=== PATIENT | female | born 1940 | race Caucasian/White ===

== ENCOUNTER → 2016-07-02 | Outpatient (CLI) | payer MEDICARE, OTHER ==
[2016-07-02 13:12] LABS: BUN/Creatinine Ratio 20.7; Calcium 9.6 mg/dL (8.5-10.1)
== END | disposition home or self-care (01) ==
LOC: LAB 08:50
PROVIDERS: ATTEND Internal Medicine Cardiovascular Disease
DX: I10 Essential (primary) hypertension (principal); E11.9 Type 2 diabetes mellitus without complications
CPT/HCPCS: 36415; 80048; 83036

== ENCOUNTER → 2017-05-23 | Outpatient (CLI) | payer MEDICARE | END | disposition home or self-care (01) | LOC: US 10:00 | PROVIDERS: ATTEND Internal Medicine Cardiovascular Disease | DX: N63.20 Unspecified lump in the left breast, unspecified quadrant (principal) | CPT/HCPCS: 10022; 76642; 76942; 88341; 88360; 88361 ==

== ENCOUNTER → 2017-06-24 | Outpatient (CLI) | payer MEDICARE ==
[2017-06-24 12:11] LABS: Urine Blood Negative /uL (Negative); Urine Specific Gravity 1.026 (1.001-1.035)
[2017-06-24 12:17] LABS: Basophils # (auto) 0 uL; Basophils % (auto) 0.5 % (0.0-2.0); Eosinophils # (auto) 0.2 uL; Eosinophils % (auto) 1.9 % (0.0-7.0); Hematocrit 44.8 % (36.0-46.0); Hemoglobin 14.9 g/dL (12.2-16.2); Lymphocytes # (auto) 3.1 uL; Lymphocytes % (auto) 33.6 % (10.0-50.0); Mean Corpuscular Hemoglobin 30.7 pg (28.0-32.0); Mean Corpuscular Hgb Conc. 33.3 g/dL (32.0-36.0); Mean Corpuscular Volume 92.2 fL (80.0-100.0); Monocytes # (auto) 0.8 uL; Monocytes % (auto) 8.8 % (0.0-12.0); Neutrophils # (auto) 5.2 uL; Neutrophils % (auto) 55.2 % (37.0-80.0); Nucleated Red Blood Cells % 0.5 %; Platelet Count (auto) 252 10^3/uL (140-450); Red Blood Cells 4.86 10^6/uL (4.0-5.20); Red Cell Distribution Width 12.9 % (11.8-14.3); White Blood Cell 9.4 10^3/uL (4.4-10.8)
[2017-06-24 12:25] LABS: Free T4 (Free Thyroxine) 1.36 ng/dL (0.89-1.76)
[2017-06-24 12:55] LABS: Albumin 3.7 g/dL (3.4-5.0); BUN/Creatinine Ratio 28.2; Bilirubin, Direct 0.2 mg/dL (0-0.2); Bilirubin, Total 0.6 mg/dL (0.2-1.0); Potassium 3.9 mmol/L (3.5-5.1); Total Protein 7.4 g/dL (6.4-8.2)
== END | disposition home or self-care (01) ==
LOC: LAB 08:02
PROVIDERS: ATTEND Internal Medicine Cardiovascular Disease
DX: E78.00 Pure hypercholesterolemia, unspecified (principal); D64.9 Anemia, unspecified; I10 Essential (primary) hypertension; E11.9 Type 2 diabetes mellitus without complications; E55.9 Vitamin D deficiency, unspecified; E03.9 Hypothyroidism, unspecified; K74.1 Hepatic sclerosis; D51.9 Vitamin B12 deficiency anemia, unspecified; N39.0 Urinary tract infection, site not specified
CPT/HCPCS: 36415; 80048; 80061; 80076; 81003; 82306; 82607; 83036; 84439; 84443; 85025

== ENCOUNTER → 2018-03-19 | Outpatient (CLI) | payer MEDICARE | END | disposition home or self-care (01) | LOC: Rad HDHVI 08:00 | PROVIDERS: ATTEND Internal Medicine Cardiovascular Disease | DX: I35.0 Nonrheumatic aortic (valve) stenosis (principal); I10 Essential (primary) hypertension | CPT/HCPCS: 93306 ==

== ENCOUNTER → 2018-04-09 | Outpatient (CLI) | payer MEDICARE ==
[2018-04-09 12:40] VITALS: BP 163/92
--- NOTE | 2018-04-09 12:40 | NUR ---
Scheduled Lashawn Cath Flush 20 gauge Thapa needle inserted by Noeim BOOTHE using sterile technique in the R upper chest. Lashawn Cath flushed with 20 mL's of 0.9% NS followed by 500 units per 5mL's Heparin. Thapa Needle D/C'd with sterile occlusive dressing to site. Patient tolerated procedure well. See e-MAR for medications given during this visit.
[2018-04-09 13:00] VITALS: BP 143/77
--- NOTE | 2018-04-09 13:00 | NUR ---
[facility] Discharge Instructions See e-MAR for any mediations given with this visit. Patient education given on disease process. Patient verbalized understanding. Previous labs reviewed. Patient discharged in stable condition with after care instructions and follow up appointment. NOTE HEPARIN ADMIN BY HALIMA BOOTHE
== END | disposition home or self-care (01) ==
LOC: CHF HDHVI 12:44
PROVIDERS: ATTEND Internal Medicine Cardiovascular Disease
DX: Z45.2 Encounter for adjustment and management of vascular access device (principal); I10 Essential (primary) hypertension; E11.9 Type 2 diabetes mellitus without complications; E78.00 Pure hypercholesterolemia, unspecified; E03.9 Hypothyroidism, unspecified
CPT/HCPCS: G0463; J1642; 96374; 96523

== ENCOUNTER → 2018-05-15 | Outpatient (CLI) | payer MEDICARE ==
[2018-05-15 09:15] VITALS: BP 139/65
--- NOTE | 2018-05-15 09:15 | NUR ---
[facility]F PT TO [facility] CLINIC FOR MD LOPEZ ORDERED PORT FLUSH
--- NOTE | 2018-05-15 09:40 | NUR ---
CHF Lashawn Cath Insertion 20 gauge Lashawn Cath inserted using sterile technique in the upper chest with occlusive dressing over jansen needle. Patient tolerated procedure well. Ordered labs drawn and sent. See e-MAR for medications given during this visit.
[2018-05-15 09:45] VITALS: BP 147/60
--- NOTE | 2018-05-15 09:48 | NUR ---
CHF Lashawn Cath Removal Thapa needle D/C'd after Heparin flush per protocol. See e-MAR for medications given during this visit. Sterile occlusive dressing to site. Patient tolerated procedure well. Site benign post infusion. Discharge Instructions See e-MAR for any mediations given with this visit. Patient education given on disease process. Patient verbalized understanding. Previous labs reviewed. Patient discharged in stable condition with after care instructions and follow up appointment.
== END | disposition home or self-care (01) ==
LOC: CHF HDHVI 09:07
PROVIDERS: ATTEND Internal Medicine Cardiovascular Disease
DX: I10 Essential (primary) hypertension (principal); D51.9 Vitamin B12 deficiency anemia, unspecified; E78.00 Pure hypercholesterolemia, unspecified
CPT/HCPCS: G0463; J1642

== ENCOUNTER → 2018-06-09 | Outpatient (CLI) | payer MEDICARE ==
[2018-06-09 09:05] VITALS: BP 152/71
--- NOTE | 2018-06-09 09:05 | NUR ---
[facility]F PT TO [facility] CLINIC FOR PORT ACCESS FOR LAB DRAW OF ALL LABS.
--- NOTE | 2018-06-09 09:20 | NUR ---
CHF Lashawn Cath Insertion 20 gauge Lashawn Cath inserted using sterile technique in the upper chest with occlusive dressing over jansen needle. Patient tolerated procedure well. Ordered labs drawn and sent. See e-MAR for medications given during this visit. Lashawn Cath Removal Jansen needle D/C'd after Heparin flush per protocol. See e-MAR for medications given during this visit. Sterile occlusive dressing to site. Patient tolerated procedure well. Site benign post infusion.
[2018-06-09 09:35] VITALS: BP 157/65
--- NOTE | 2018-06-09 09:35 | NUR ---
CHF Discharge Instructions See e-MAR for any mediations given with this visit. Patient education given on disease process. Patient verbalized understanding. Previous labs reviewed. Patient discharged in stable condition with after care instructions and follow up appointment. FOLLOW UP WITH DR. LOPEZ SCHEDULED.
[2018-06-09 12:09] LABS: Urine Blood Negative /uL (Negative); Urine Specific Gravity 1.024 (1.001-1.035)
[2018-06-09 12:12] LABS: Potassium 3.8 mmol/L (3.5-5.1)
[2018-06-09 12:19] LABS: Basophils # (auto) 0 uL; Basophils % (auto) 0.6 % (0.0-2.0); Eosinophils # (auto) 0.1 uL; Eosinophils % (auto) 2.3 % (0.0-7.0); Hematocrit 40.9 % (36.0-46.0); Hemoglobin 14.1 g/dL (12.2-16.2); Lymphocytes # (auto) 1.5 uL; Lymphocytes % (auto) 26.9 % (10.0-50.0); Mean Corpuscular Hemoglobin 31.3 pg (28.0-32.0); Mean Corpuscular Hgb Conc. 34.4 g/dL (32.0-36.0); Mean Corpuscular Volume 90.8 fL (80.0-100.0); Monocytes # (auto) 0.6 uL; Monocytes % (auto) 10.7 % (0.0-12.0); Neutrophils # (auto) 3.2 uL; Neutrophils % (auto) 59.5 % (37.0-80.0); Nucleated Red Blood Cells % 0.2 %; Platelet Count (auto) 203 10^3/uL (140-450); Red Blood Cells 4.51 10^6/uL (4.0-5.20); Red Cell Distribution Width 13.7 % (11.8-14.3); White Blood Cell 5.4 10^3/uL (4.4-10.8)
[2018-06-09 12:21] LABS: Free T4 (Free Thyroxine) 1.25 ng/dL (0.89-1.76)
[2018-06-09 12:24] LABS: Albumin 3.4 g/dL (3.4-5.0); BUN/Creatinine Ratio 26.3; Bilirubin, Total 0.7 mg/dL (0.2-1.0); Total Protein 6.6 g/dL (6.4-8.2)
== END | disposition home or self-care (01) ==
LOC: LAB 08:54
PROVIDERS: ATTEND Internal Medicine Cardiovascular Disease
DX: E11.9 Type 2 diabetes mellitus without complications (principal); I10 Essential (primary) hypertension; E03.9 Hypothyroidism, unspecified; E55.9 Vitamin D deficiency, unspecified; D51.9 Vitamin B12 deficiency anemia, unspecified; N39.0 Urinary tract infection, site not specified; G93.89 Other specified disorders of brain; Z85.3 Personal history of malignant neoplasm of breast
CPT/HCPCS: 36415; 80053; 80061; 81003; 82306; 82607; 83036; 84439; 84443; 85025; 87086; G0463; J1642; 96523

== ENCOUNTER → 2018-06-23 | Outpatient (CLI) | payer MEDICARE | END | disposition home or self-care (01) | LOC: Rad HDHVI 11:05 | PROVIDERS: ATTEND Internal Medicine Cardiovascular Disease | DX: G93.89 Other specified disorders of brain (principal); R27.0 Ataxia, unspecified | CPT/HCPCS: 70450 ==

== ENCOUNTER → 2018-07-10 | Outpatient (CLI) | payer MEDICARE ==
[~2018-07-10] VITALS: Ht 160 cm; Wt 81.6 kg
[~2018-07-10] MED LIST: ADENOSINE 69 MG in GIVE UN-DILUTED 0 ML IV ONE; ADENOSINE 90 MG/30 ML INJ IV ONE
[2018-07-10 13:45] VITALS: BP 136/65
--- NOTE | 2018-07-10 13:45 | NUR ---
Lashawn Cath Insertion 20 gauge non coring Lashawn Cath inserted using sterile technique in the upper chest with occlusive dressing over jansen needle. Patient tolerated procedure well. Ordered labs drawn and sent. See e-MAR for medications given during this visit.
--- NOTE | 2018-07-10 13:50 | NUR ---
[facility]F PT ARRIVED AT [facility] CLINIC FOR FRACISCO CATH ACCESS, ONE SET OF VITALS DONE AND PATIENT SENT TO [facility] FOR PROCEDURE AND DISCHARGE FROM THERE
--- NOTE | 2018-07-10 15:00 | NUR ---
Lashawn Cath Removal Thapa needle D/C'd after Heparin flush per protocol. See e-MAR for medications given during this visit. Sterile occlusive dressing to site. Patient tolerated procedure well. Site benign post infusion.
== END | disposition home or self-care (01) ==
LOC: Rad HDHVI 13:23
PROVIDERS: ATTEND Internal Medicine Cardiovascular Disease
DX: C50.919 Malignant neoplasm of unspecified site of unspecified female breast (principal); R42 Dizziness and giddiness
CPT/HCPCS: 78452; 93005; 96374; 96375; 96523; A9500; G0463; J0153; J1642

== ENCOUNTER → 2018-08-07 | Outpatient (CLI) | payer MEDICARE ==
[~2018-08-07] VITALS: Ht 30.5 cm; Wt 0.5 kg
[2018-08-07 08:50] VITALS: BP 134/58
--- NOTE | 2018-08-07 08:50 | NUR ---
PT. HERE FOR MONTHLY FRACISCO CATH FLUSH PER MD ORDER. PT. WITH NO C/O. ORDERS RECEIVED AND CARRIED OUT.
--- NOTE | 2018-08-07 09:00 | NUR ---
Lashawn Cath Insertion 20 gauge Lashawn Cath inserted using sterile technique in the upper chest with occlusive dressing over jansen needle. Patient tolerated procedure well. See e-MAR for medications given during this visit.
[2018-08-07 09:20] VITALS: BP 130/62
--- NOTE | 2018-08-07 09:20 | NUR ---
Discharge Instructions See e-MAR for any mediations given with this visit. Patient education given on disease process. Patient verbalized understanding. Previous labs reviewed. Patient discharged in stable condition with after care instructions and follow up appointment.
== END | disposition home or self-care (01) ==
LOC: CHF HDHVI 08:39
PROVIDERS: ATTEND Internal Medicine Cardiovascular Disease
DX: Z45.2 Encounter for adjustment and management of vascular access device (principal); C50.919 Malignant neoplasm of unspecified site of unspecified female breast
CPT/HCPCS: G0463; J1642; 96374

== ENCOUNTER → 2018-09-04 | Outpatient (CLI) | payer MEDICARE ==
[2018-09-04 09:00] VITALS: BP 153/57
--- NOTE | 2018-09-04 09:00 | NUR ---
Discharge Instructions See e-MAR for any mediations given with this visit. Patient education given on disease process. Patient verbalized understanding. Previous labs reviewed. Patient discharged in stable condition with after care instructions and follow up appointment. MEDICATION 0900 HEPARIN 500 UNITS IVP X 1
[2018-09-04 09:20] VITALS: BP 140/68
--- NOTE | 2018-09-04 09:20 | NUR ---
RIGHT CHEST POWER PORT ACCESSED FOR MONTHLY MAINTENANCE. Scheduled Lashawn Cath Flush 20 gauge Thapa needle inserted using sterile technique in the upper chest. Lashawn Cath flushed with 20 mL's of 0.9% NS followed by 500 units per 5mL's Heparin. Thapa Needle D/C'd with sterile occlusive dressing to site. Patient tolerated procedure well.
== END | disposition home or self-care (01) ==
LOC: CHF HDHVI 08:59
PROVIDERS: ATTEND Internal Medicine Cardiovascular Disease
DX: Z45.2 Encounter for adjustment and management of vascular access device (principal); Z85.3 Personal history of malignant neoplasm of breast
CPT/HCPCS: G0463; J1642; 96523

== ENCOUNTER → 2018-11-27 | Outpatient (CLI) | payer MEDICARE ==
[~2018-11-27] VITALS: Ht 30.5 cm; Wt 0.5 kg
[2018-11-27 09:00] VITALS: BP 132/52
[2018-11-27 09:20] VITALS: BP 130/55
--- NOTE | 2018-11-27 09:20 | NUR ---
IN TO CLINIC FOR RIGHT CHEST POWER PORT FLUSH. AWAKE AND ALERT WITHOUT DISTRESS. Scheduled Lashawn Cath Flush 20 gauge Thapa needle inserted using sterile technique in the upper chest. Lashawn Cath flushed with 20 mL's of 0.9% NS followed by 500 units per 5mL's Heparin. Thapa Needle D/C'd with sterile occlusive dressing to site. Patient tolerated procedure well. See e-MAR for medications given during this visit.
== END | disposition home or self-care (01) ==
LOC: CHF HDHVI 09:00
PROVIDERS: ATTEND Internal Medicine Cardiovascular Disease
DX: Z45.2 Encounter for adjustment and management of vascular access device (principal); I10 Essential (primary) hypertension; E03.9 Hypothyroidism, unspecified; E11.9 Type 2 diabetes mellitus without complications; Z85.3 Personal history of malignant neoplasm of breast
CPT/HCPCS: G0463; J1642; 96523

== ENCOUNTER → 2019-01-07 | Outpatient (CLI) | payer MEDICARE ==
[2019-01-07 09:05] VITALS: BP 127/59
--- NOTE | 2019-01-07 09:05 | NUR ---
CHF PT ARRIVED AT THE [facility]F CLINIC FOR FRACISCO CATH CARE. PT IS A/O X 3 VSS
[2019-01-07 09:37] VITALS: BP 130/60
--- NOTE | 2019-01-07 09:37 | NUR ---
Discharge Instructions See e-MAR for any mediations given with this visit. Patient education given on disease process. Patient verbalized understanding. Previous labs reviewed. Patient discharged in stable condition with after care instructions and follow up appointment. MEDS HEPARIN 500 UNITS IVP X 1
== END | disposition home or self-care (01) ==
LOC: CHF HDHVI 09:08
PROVIDERS: ATTEND Internal Medicine Cardiovascular Disease
DX: Z45.2 Encounter for adjustment and management of vascular access device (principal); I10 Essential (primary) hypertension; E03.9 Hypothyroidism, unspecified; E11.9 Type 2 diabetes mellitus without complications; Z85.3 Personal history of malignant neoplasm of breast
CPT/HCPCS: G0463; J1642

== ENCOUNTER → 2019-02-05 | Outpatient (CLI) | payer MEDICARE ==
[~2019-02-05] MED LIST changes: -ADENOSINE 69 MG in GIVE UN-DILUTED 0 ML IV ONE; -ADENOSINE 90 MG/30 ML INJ IV ONE; +CYANOCOBALAMIN (B-12) 1000 MCG/1 ML VIAL IM ONE; +CYANOCOBALAMIN (B-12) 1000 MCG/1 ML VIAL ONE
[2019-02-05 09:00] VITALS: BP 151/64
--- NOTE | 2019-02-05 09:34 | NUR ---
IN TO CLINIC FOR RIGHT CHEST PORT MAINTENANCE. Lashawn Cath Insertion 20 gauge Lashawn Cath inserted using sterile technique in the upper chest with occlusive dressing over jansen needle. Patient tolerated procedure well. Ordered labs drawn and sent. See e-MAR for medications given during this visit.
[2019-02-05 09:35] VITALS: BP 146/65
== END | disposition home or self-care (01) ==
LOC: CHF HDHVI 09:01
PROVIDERS: ATTEND Internal Medicine Cardiovascular Disease
DX: Z45.2 Encounter for adjustment and management of vascular access device (principal); E03.9 Hypothyroidism, unspecified; I10 Essential (primary) hypertension; E11.9 Type 2 diabetes mellitus without complications; Z85.3 Personal history of malignant neoplasm of breast
CPT/HCPCS: 96372; G0463; J1642; J3420; 96523

== ENCOUNTER → 2019-04-23 | Outpatient (CLI) | payer MEDICARE ==
[2019-04-23 09:15] VITALS: BP 146/69
--- NOTE | 2019-04-23 09:15 | NUR ---
Discharge Instructions See e-MAR for any mediations given with this visit. Patient education given on disease process. Patient verbalized understanding. Previous labs reviewed. Patient discharged in stable condition with after care instructions and follow up appointment. MEDICATIONS VITAMIN B12 1000 MCG IM X 1 RIGHT DELTOID LOT # [id number] EXP 11/30 HEPARIN IVP
--- NOTE | 2019-04-23 09:39 | NUR ---
Scheduled Lashawn Cath Flush 20 gauge Thapa needle inserted using sterile technique in the upper chest. Lashawn Cath flushed with 20 mL's of 0.9% NS followed by 500 units per 5mL's Heparin. Thapa Needle D/C'd with sterile occlusive dressing to site. Patient tolerated procedure well. See e-MAR for medications given during this visit.
[2019-04-23 09:58] VITALS: BP 156/66
[2019-04-23 11:54] LABS: Basophils # (auto) 0 uL; Basophils % (auto) 0.6 % (0.0-2.0); Eosinophils # (auto) 0.2 uL; Eosinophils % (auto) 2.5 % (0.0-7.0); Hematocrit 42.6 % (36.0-46.0); Hemoglobin 14.3 g/dL (12.2-16.2); Lymphocytes # (auto) 2.6 uL; Lymphocytes % (auto) 38.3 % (10.0-50.0); Mean Corpuscular Hemoglobin 30.8 pg (28.0-32.0); Mean Corpuscular Hgb Conc. 33.5 g/dL (32.0-36.0); Mean Corpuscular Volume 91.8 fL (80.0-100.0); Monocytes # (auto) 0.6 uL; Monocytes % (auto) 8.6 % (0.0-12.0); Neutrophils # (auto) 3.4 uL; Platelet Count (auto) 202 10^3/uL (140-450); Red Blood Cells 4.64 10^6/uL (4.0-5.20); Red Cell Distribution Width 13.4 % (11.8-14.3); White Blood Cell 6.8 10^3/uL (4.4-10.8)
[2019-04-23 12:00] LABS: Urine Blood Negative /uL (Negative); Urine Specific Gravity 1.024 (1.001-1.035)
[2019-04-23 12:02] LABS: Albumin 3.6 g/dL (3.4-5.0)
[2019-04-23 12:11] LABS: Bilirubin, Total 0.6 mg/dL (0.2-1.0); Calcium 9.4 mg/dL (8.5-10.1); Total Protein 6.9 g/dL (6.4-8.2)
[2019-04-23 15:26] LABS: Free T4 (Free Thyroxine) 1.36 ng/dL (0.89-1.76)
== END | disposition home or self-care (01) ==
LOC: CHF HDHVI 09:05
PROVIDERS: ATTEND Internal Medicine Cardiovascular Disease
DX: Z00.00 Encounter for general adult medical examination without abnormal findings (principal); C50.919 Malignant neoplasm of unspecified site of unspecified female breast; E03.9 Hypothyroidism, unspecified; K90.9 Intestinal malabsorption, unspecified; N39.0 Urinary tract infection, site not specified; D51.9 Vitamin B12 deficiency anemia, unspecified; Z79.899 Other long term (current) drug therapy; R53.83 Other fatigue
CPT/HCPCS: 36415; 80053; 80061; 81003; 82306; 82607; 83036; 84439; 84443; 85025; 87086; 96372; G0463; J1642; J3420

== ENCOUNTER → 2019-06-04 | Outpatient (CLI) | payer MEDICARE ==
[~2019-06-04] VITALS: Ht 30.5 cm; Wt 0.5 kg
[2019-06-04 08:10] VITALS: BP 123/54
--- NOTE | 2019-06-04 08:10 | NUR ---
Discharge Instructions See e-MAR for any mediations given with this visit. Patient education given on disease process. Patient verbalized understanding. Previous labs reviewed. Patient discharged in stable condition with after care instructions and follow up appointment. PT AT CLINIC FOR MONTHLY PORT FLUSH. A/O X 4 0 DISTRESS VSS MEDICATIONS HEPARIN IVP
[2019-06-04 08:40] VITALS: BP 141/65
[2019-06-04 16:05] LABS: Urine Blood Negative /uL (Negative); Urine Specific Gravity 1.022 (1.001-1.035)
== END | disposition home or self-care (01) ==
LOC: CHF HDHVI 08:03
PROVIDERS: ATTEND Internal Medicine Cardiovascular Disease
DX: N39.0 Urinary tract infection, site not specified (principal)
CPT/HCPCS: 81003; 87086; G0463; J1642

== ENCOUNTER → 2020-01-27 | Outpatient (CLI) | payer MEDICARE ==
[2020-01-27 12:08] LABS: Basophils # (auto) 0 10 ^3/uL (0-0.2); Basophils % (auto) 0.5 % (0.0-2.0); Eosinophils # (auto) 0.1 10 ^3/uL (0-0.8); Eosinophils % (auto) 1.6 % (0.0-7.0); Hemoglobin 14.7 g/dL (12.2-16.2); Lymphocytes # (auto) 2.5 10 ^3/uL (0.4-5.4); Mean Corpuscular Hemoglobin 29.7 pg (28.0-32.0); Mean Corpuscular Hgb Conc. 31.9 g/dL (32.0-36.0); Monocytes # (auto) 0.7 10 ^3/uL (0-1.3); Monocytes % (auto) 8.4 % (0.0-12.0); Neutrophils # (auto) 4.5 10 ^3/uL (1.6-8.6); Neutrophils % (auto) 57.5 % (37.0-80.0); Nucleated Red Blood Cells % 0.1 %; Platelet Count (auto) 221 10^3/uL (140-450); Red Blood Cells 4.95 10^6/uL (4.0-5.20); Red Cell Distribution Width 13.5 % (11.8-14.3); White Blood Cell 7.9 10^3/uL (4.4-10.8)
[2020-01-27 12:12] LABS: Urine Blood Negative /uL (Negative); Urine Specific Gravity 1.017 (1.001-1.035)
[2020-01-27 12:24] LABS: Chloride 103 mmol/L (98-107); Potassium 4.2 mmol/L (3.5-5.1); Sodium 137 mmol/L (136-145)
[2020-01-27 12:28] LABS: Free T4 (Free Thyroxine) 1.35 ng/dL (0.89-1.76)
[2020-01-27 12:33] LABS: Alanine Aminotransferase 26 U/L (13-56); Albumin 3.4 g/dL (3.4-5.0); Alkaline Phosphatase 78 U/L (45-117); Anion Gap 7 (5-15); Aspartate Aminotransferase 17 U/L (15-37); BUN/Creatinine Ratio 24.2; Bilirubin, Total 0.6 mg/dL (0.2-1.0); Blood Urea Nitrogen 22 mg/dL (7-18); Calcium 9.6 mg/dL (8.5-10.1); Carbon Dioxide 27 mmol/L (21-32); Cholesterol 205 mg/dL (< 200); GFR African American 77 mL/min; GFR Non-African American 63 mL/min; Glucose 110 mg/dL (74-106); HDL Cholesterol < 3 mg/dL (40-59); LDL Cholesterol 122 mg/dL (< 100); Total Protein 7.1 g/dL (6.4-8.2); Triglycerides 190 mg/dL (< 150)
== END | disposition home or self-care (01) ==
LOC: LAB 09:07
PROVIDERS: ATTEND Internal Medicine Cardiovascular Disease
DX: D51.3 Other dietary vitamin B12 deficiency anemia (principal); D64.9 Anemia, unspecified; E11.9 Type 2 diabetes mellitus without complications; E55.9 Vitamin D deficiency, unspecified; I10 Essential (primary) hypertension; R00.2 Palpitations; R53.1 Weakness; R30.0 Dysuria
CPT/HCPCS: 36415; 80053; 80061; 81003; 82306; 82607; 83036; 84439; 84443; 85025

== ENCOUNTER → 2021-03-27 | Outpatient (CLI) | payer MEDICARE | END | disposition home or self-care (01) | LOC: Rad HDHVI 10:55 | PROVIDERS: ATTEND Internal Medicine Cardiovascular Disease | DX: R07.89 Other chest pain (principal); R06.02 Shortness of breath | CPT/HCPCS: 93306 ==

== ENCOUNTER → 2021-03-29 | Outpatient (CLI) | payer MEDICARE ==
[~2021-03-29] VITALS: Ht 160 cm; Wt 86.2 kg
[~2021-03-29] MED LIST changes: +ADENOSINE 72 MG in GIVE UN-DILUTED 0 ML IV ONE; +ADENOSINE 90 MG/30 ML INJ IV ONE; -CYANOCOBALAMIN (B-12) 1000 MCG/1 ML VIAL IM ONE; -CYANOCOBALAMIN (B-12) 1000 MCG/1 ML VIAL ONE
== END | disposition home or self-care (01) ==
LOC: Rad HDHVI 08:01
PROVIDERS: ATTEND Internal Medicine Cardiovascular Disease
DX: I10 Essential (primary) hypertension (principal); E11.9 Type 2 diabetes mellitus without complications; E78.5 Hyperlipidemia, unspecified; Z82.49 Family history of ischemic heart disease and other diseases of the circulatory system
CPT/HCPCS: 78452; 93005; 96374; 96375; A9500; J0153

== ENCOUNTER → 2021-04-24 | Outpatient (CLI) | payer MEDICARE | END | disposition home or self-care (01) | LOC: LAB 14:53 | PROVIDERS: ATTEND Internal Medicine Cardiovascular Disease | DX: R94.4 Abnormal results of kidney function studies (principal) | CPT/HCPCS: 36415; 82565; 84520 ==

== ENCOUNTER → 2021-04-26 | Outpatient (CLI) | payer MEDICARE ==
[~2021-04-26] MED LIST changes: -ADENOSINE 72 MG in GIVE UN-DILUTED 0 ML IV ONE; -ADENOSINE 90 MG/30 ML INJ IV ONE; +IOHEXOL 350 MG/ML 100ML IJ ONE
[2021-04-26 09:56] VITALS: BP 165/72
[2021-04-26 10:34] VITALS: BP 152/59
== END | disposition home or self-care (01) ==
LOC: Rad HDHVI 09:49
PROVIDERS: ATTEND Internal Medicine Cardiovascular Disease
DX: R91.8 Other nonspecific abnormal finding of lung field (principal); I25.10 Atherosclerotic heart disease of native coronary artery without angina pectoris; K76.0 Fatty (change of) liver, not elsewhere classified; R59.0 Localized enlarged lymph nodes; C50.919 Malignant neoplasm of unspecified site of unspecified female breast; I70.0 Atherosclerosis of aorta; K57.10 Diverticulosis of small intestine without perforation or abscess without bleeding; E27.8 Other specified disorders of adrenal gland; K86.89 Other specified diseases of pancreas; M47.814 Spondylosis without myelopathy or radiculopathy, thoracic region; M85.88 Other specified disorders of bone density and structure, other site
CPT/HCPCS: 71260; G0463; Q9967

== ENCOUNTER → 2021-06-14 | Day surgery (SDC) | payer MEDICARE ==
[2021-06-12 10:36] LABS: Basophils # (auto) 0.1 10 ^3/uL (0-0.2); Basophils % (auto) 1.1 % (0.0-2.0); Eosinophils # (auto) 0.1 10 ^3/uL (0-0.8); Eosinophils % (auto) 1.3 % (0.0-7.0); Hematocrit 44.8 % (36.0-46.0); Hemoglobin 14.7 g/dL (12.2-16.2); Lymphocytes # (auto) 2.5 10 ^3/uL (0.4-5.4); Lymphocytes % (auto) 23.2 % (10.0-50.0); Mean Corpuscular Hemoglobin 29.4 pg (28.0-32.0); Mean Corpuscular Hgb Conc. 32.9 g/dL (32.0-36.0); Mean Corpuscular Volume 89.4 fL (80.0-100.0); Monocytes # (auto) 0.9 10 ^3/uL (0-1.3); Monocytes % (auto) 8.4 % (0.0-12.0); Nucleated Red Blood Cells % 0.2 %; Red Blood Cells 5.01 10^6/uL (4.0-5.20); Red Cell Distribution Width 13.4 % (11.8-14.3); White Blood Cell 10.6 10^3/uL (4.4-10.8)
[2021-06-12 10:55] LABS: Potassium 3.8 mmol/L (3.5-5.1)
[2021-06-12 11:02] LABS: Bilirubin, Total 0.5 mg/dL (0.2-1.0); Calcium 8.9 mg/dL (8.5-10.1); Total Protein 6.6 g/dL (6.4-8.2)
[2021-06-12 12:14] LABS: Urine Bacteria FEW /hpf (None Seen); Urine Blood Negative /uL (Negative); Urine Hyaline Cast FEW /lpf (0 - 2); Urine Mucus FEW (None Seen); Urine Specific Gravity 1.026 (1.001-1.035); Urine WBC 12 /hpf (0 - 5)
[~2021-06-14] VITALS: Ht 30.5 cm; Wt 0.5 kg
[~2021-06-14] MED LIST changes: +ACE3T PO; +DexAMETHasone SOD PHOS 10MG/1ML VIAL INJ ONE; +GABA300C10 PO; +HYDR-4072 PO; -IOHEXOL 350 MG/ML 100ML IJ ONE; +LABETALOL HCL 5 MG/ML 4ML SYRINGE IV PRN; +LIDOCAINE 1%-Mpf/Epinephrine 1:200,000 ONE; +LOSA50TA27 PO; +METF-370 PO; +MIDAZOLAM HCL 2MG/2ML 2ml VIAL (1mg/ml) IV PRN; +MIDAZOLAM HCL 2MG/2ML 2ml VIAL (1mg/ml) ONE; +MONT5CHW23 PO; +MORPHINE SULFATE 4 MG/ML SYR/VIAL IV PRN; +NAPR375T27 PO; +ONDANSETRON HCL 4 MG/2 ML VIAL IV PRN; +POVIDONE IODINE 10 % TOPICAL OINT 30GM TOP ONE; +PROPOFOL 10 MG/ML 20 ML IV ONE; +ZINC50TA7 PO; +ePHEDrine SULFATE 50 MG/ML AMP IV PRN; +fentaNYL CITRATE 100 MCG/2 ML VL ONE; +levoFLOXacin 500MG 100 ML IV ONE
[2021-06-14 11:15] VITALS: BP 134/47
== END | disposition home or self-care (01) ==
LOC: SUR 07:39
PROVIDERS: ATTEND Surgery
DX: D05.12 Intraductal carcinoma in situ of left breast (principal); I10 Essential (primary) hypertension; E11.9 Type 2 diabetes mellitus without complications; J44.9 Chronic obstructive pulmonary disease, unspecified; E66.9 Obesity, unspecified; Z68.33 Body mass index [BMI] 33.0-33.9, adult; Z90.49 Acquired absence of other specified parts of digestive tract; Z90.710 Acquired absence of both cervix and uterus; Z88.0 Allergy status to penicillin
CPT/HCPCS: 19101; 36415; 80053; 81001; 82962; 85025; 86850; 86900; 86901; 88305; 88342; J1100; J1956; J2001; J2250; J2704; J3010; U0003